=== PATIENT | female | born 1990 ===

== ENCOUNTER 2025-03-02 14:44 | Observation (INO) | payer OTHER, SELFPAY ==
[2025-03-02] VITALS (17 sets, daily range): BP systolic 104–119; BP diastolic 61–76; PULSE 64–90; RESP 9–27; TEMP 36.3–36.6; O2SAT 97–100; BMI 25.4
--- NOTE | 2025-03-02 | PATH_ITS ---
[facility] Accession Number: [id number] No. of containers..02 Tissue . 01 Material submitted: . PART A: stomach - ANTRAL PART B: esophagus - ESOPHAGUS . 01 Diagnosis: Part A: ANTRAL: Gastric mucosa with minimal chronic inflammation. No Helicobacter organisms identified on H/E stain. No intestinal metaplasia, dysplasia, or malignancy identified. . Part B: ESOPHAGUS: Proximal gastric-type glandular mucosa with mild chronic inflammation. No goblet cell metaplasia, dysplasia, or malignancy identified. [facility] 03/13/20251605 Local . 01 Electronically signed: . Javier Bonds MD, Pathologist NPI- [id number] . 01 Gross description: . . . . Received are two formalin-filled containers both labeled with the patient's name. . A. In a container labeled antral. The specimen consists of two fragments of girard, soft tissue which range in size from 0.2 x 0.2 x 0.2 cm to 0.4 x 0.2 x 0.2 cm. All fragments are totally submitted in cassette A1. . B. In a container labeled esoph. bx. The specimen consists of two fragments of girard, soft tissue which range in size from 0.2 x 0.2 x 0.2 cm to 0.3 x 0.3 x 0.2 cm. All fragments are totally submitted in cassette B1. ([id number]) /[facility] 03/13/20251605 Local . 01 Pathologist provided ICD-10: K20.90, K29.30 . 01 CPT . 134663, [id number] Specimen Comment: A courtesy copy of this report has been sent to [facility] Performed at: [address] [place] [id number] MD Javier Bonds MD Phone: [phone]
--- NOTE | 2025-03-02 15:06 | ED.SKABFB ---
HPI - Skin/Abscess/Foreign Bdy General Chief complaint: Skin/Abscess/Foreign Body Stated complaint: food stuck in esoph, couple hours Time Seen by Provider: 03/02/25 15:00 Source: patient Mode of arrival: Ambulatory Limitations: no limitations History of Present Illness HPI narrative: 34-year-old female history of prior strictures, Page fundoplication around 4th grade patient has had last esophageal dilation in 2014 she has had issues on and off over the years. States that she has been slowly worsening over the last year but was eating Ruston sprouts today when she, felt it get stuck. patient states happened at about noon today. She has not had any success getting it out. She has been spitting her saliva. She denies any pain, no shortness of breath, no swelling no difficulty swallowing otherwise. She states she has had a prior appendectomy. Patient has allergy to paper tape. Denies any tobacco, occasional alcohol, no recreational drugs. Related Data Allergies Allergy/AdvReac Type Severity Reaction Status Date / Time paper tape Allergy Mild Rash Uncoded 03/02/25 14:51 Review of Systems Review of Systems ROS Unobtainable: All systems reviewed & are unremarkable except as noted in HPI and below Patient History Social History household members: spouse Smoking Status: Never smoker Smoking Status: Never smoker Exam Narrative Exam Narrative: GEN: well nourished, well appearing Female, alert and oriented x 3, patient appears to be in mild distress. HEENT: Atraumatic, pupils are equal round reactive to light, extraocular movements are intact, nares are clear, TMs are clear with no fluid, there is no conjunctival pallor. Throat is clear without any exudates, erythema, tonsillar enlargement or uvular deviation, no stridor, no hoarseness. HEART: Regular rate and rhythm without murmur, clicks, rubs. LUNGS:Lungs clear to auscultation, no wheezes, rales, crackles, chest moves symmetrically ABD:bowel sounds normal, soft, non-tender, no guarding, rebound, rigidity, no masses noted, no hepatosplenomegaly MSCL: full range of motion, normal gait NEURO:CN 2-12 intact, sensation normal Initial Vital Signs Initial Vital Signs: Vital Signs Temperature 98 F 03/02/25 14:51 Pulse Rate 76 03/02/25 14:51 Respiratory Rate 17 03/02/25 14:51 Blood Pressure 119/63 03/02/25 14:51 Pulse Oximetry 97 03/02/25 14:51 Oxygen Delivery Method Room Air 03/02/25 14:51 Course Orders Ordered: Sodium Chloride (Normal Saline 0.9%) 1,000 mls @ 150 mls/hr IV CONT ATIYA Last Admin: 03/02/25 16:20 Dose: 150 mls/hr Documented By: HOMER Lactated Ringer's (Lactated Ringers) 1,000 mls @ 42 mls/hr IV CONT ATIYA Discontinued Medications Glucagon (Glucagon,Human Recombinant 1 Mg/Ml Vial) 1 mg IV NOW ONE Stop: 03/02/25 15:07 Last Admin: 03/02/25 15:27 Dose: 1 mg Documented By: BRONWYN Vital Signs Vital signs: Vital Signs - 8 hr 03/02/25 14:51 03/02/25 16:27 03/02/25 16:30 Temperature 98 F Pulse Rate 76 67 71 Respiratory Rate 17 Blood Pressure 119/63 Pulse Oximetry 97 100 100 Oxygen Delivery Method Room Air 03/02/25 16:30 03/02/25 17:00 03/02/25 17:00 Temperature Pulse Rate 68 Respiratory Rate Blood Pressure 107/68 110/70 Pulse Oximetry 100 Oxygen Delivery Method MDM - Skin/Abscess/Foreign Bdy Lab Data Labs: Point of Care Testing Test Results Negative MDM Narrative Medical decision making narrative: 34-year-old female with a history of esophageal strictures last dilation was over 10 years ago patient initially had issues in 4th grade had dilation, Page fundoplication and also a G-tube for a period of time around that age. Patient noted slowly worsening symptoms over the past year, states she was eating Ruston sprouts that seemed to have gotten stuck. She has continuously spitting her secretions but not in any other distress. Patient received glucagon along with carbonated beverage without success. Patient started on maintenance fluids. Dr. Ennis paged @ [phone], currently in the OR. Will call back. Spoke with general surgery, Dr. Ennis @ [phone] plan for OR this evening there sternal currently with the patient so maybe a little bit longer. But accepts for plan for OR tonight for esophageal food bolus. Dr. Ennis in the department to evaluate patient. Discharge Plan Departure Patient Disposition: Admitted to Surgery Clinical Impression: Food impaction of esophagus Qualifiers: Encounter type: initial encounter Qualified Code(s): T18.128A - Food in esophagus causing other injury, initial encounter Admit Date/Time: 03/02/25 17:02 Admit Provider: Ronal Ennis
[2025-03-02] MEDS: GLUCAGON,HUMAN RECOMBINANT 1 MG/ML VIAL IV (15:27)
--- NOTE | 2025-03-02 15:30 | PC.NURSE ---
Attempted to swallow warm soda with glucagon injection, was not successful in clearing impaction.
[2025-03-02] MEDS: SODIUM CHLORIDE 0.9% 1,000 ML 150 ML IV (16:20)
--- NOTE | 2025-03-02 16:53 | CM.DANOTE ---
DCP Assessment Note: Pt is a 34yo female, resident of [place], is admitted for food impaction. Pt lives in a house with her spouse, Jessica. Pt's Primary Care Provider is on [facility] and insurance is [employer]. Reviewed chart and discussed with multidisciplinary team pt's medical status and initial discharge needs. Per ED Provider, General Surgery is consulted for possible surgical intervention of impacted food. Plan: Anticipating discharge home when medically cleared, pt spouse to transport home. CM team will follow closely for coordination of discharge plans. Nloa Nicole [facility] Discharge Planning/Care Management CM Discharge Assessment Start: 03/02/25 16:51 Freq: Status: Active Protocol: Document 03/02/25 16:51 MW (Rec: 03/02/25 16:53 MW [id number]) Discharge Planning Assessment Assigned Discharge [employer] Insurance DPOA/Assigned Jessica Browning, Spouse Designee Name Contact Information [phone] Advance Directives? No Has Patient been No admitted in last 30 days? Prior Living House Arrangements Household Members spouse Type of Drives own vehicle transporation used prior to admit Independent with ADL Yes 's Is patient alert and Yes oriented? Discharge Plan Home Review Status In Process Please Provide Date 03/02/25 Initial DC Assessment Was Performed Next Review Type Continued Stay Review
--- NOTE | 2025-03-02 18:43 | PM.HP.IH.1 ---
History of Present Illness History of Present Illness Date Patient Seen: 03/02/25 Time Patient Seen: 18:43 Chief complaint: food stuck in esoph, couple hours Narrative: 34yo F admitted from ED with food impaction. Patient with esophageal stricture. Last dilation 2013. H/O remote Page. Tonight, brussel sprouts stuck. Glucagon in ED with no improvement. Plan EGD, possible dilation. [facility] Social History household members: spouse Smoking Status: Never smoker Meds Home Medications and Allergies Allergies Allergy/AdvReac Type Severity Reaction Status Date / Time paper tape Allergy Mild Rash Uncoded 03/02/25 14:51 Exam Vital Signs (past 8 hours): - 03/02/25 14:51 03/02/25 16:27 03/02/25 16:30 Temperature 98 F Pulse Rate 76 67 71 Respiratory Rate 17 Blood Pressure 119/63 Pulse Oximetry 97 100 100 Oxygen Delivery Method Room Air 03/02/25 16:30 03/02/25 17:00 03/02/25 17:00 Temperature Pulse Rate 68 Respiratory Rate Blood Pressure 107/68 110/70 Pulse Oximetry 100 Oxygen Delivery Method Oxygen Delivery Method Room Air Narrative Exam Narrative: Const General: healthy appearing, comfortable and no acute distress Orientation: alert and oriented x3 HENMT Ears: hearing grossly normal bilaterally Eyes Visual Christian: normal visual christian by confrontation Conjunctivae: conjunctivae normal Sclera: sclerae normal EOM: EOM intact bilaterally Resp Effort & Inspection: normal respiratory effort and able to speak in complete sentences Cardio Rate: regular rate GI Palpation: soft (NT) Extrem General: no pedal edema and no calf tenderness Assessment & Plan Assessment and plan (1) Food impaction of esophagus: Qualifiers: Encounter type: initial encounter Qualified Code(s): T18.128A - Food in esophagus causing other injury, initial encounter; [id number].[id number] - Food entering into or through a natural orifice, initial encounter Status: Acute Plan EGD, remove food impaction. Possible dilation. The risks, benefits and options regarding the procedure were explained to the patient in detail. Risk discussion included but not limited to: perforation, bleeding, infection. The patient was encouraged to ask questions and they were answered to their satisfaction. The patient understands and is agreeable to proceed. Time-Based Coding :: [TOTAL MINUTES] spent with patient and on the chart (including review of chart, obtaining history, exam, reviewing outside data, placing orders, documenting exam and treatment plan, and counseling patient) on [DATE]. 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
--- NOTE | 2025-03-02 21:21 | P.OP.EGD_ITS ---
Operative Date/Time/Diagnoses Date of procedure: 03/02/25 Time of procedure: 22:30 Pre-op diagnosis: Food impaction, esophageal stricture Post-op diagnosis: same Procedure & Clinicians Study performed: EGD with dilation Same procedure(s) as scheduled: Yes Indications: 34yo F with food impaction, h/o esophageal stricture Surgeon: Ronal Ennis Anesthesia Type: MAC +/- Procedure Notes SCOAP/Timeout: Performed Procedure in detail: EGD Informed consent was obtained. The procedure, its risks, benefits, and alternatives were discussed. Patient understood and agreed to proceed. The patient was placed in the left lateral decubitus position with head elevated. Sedation given per anesthesia. The video endoscope was inserted into the oropharynx and guided under direct vision into the esophagus, stomach, and duodenum which were carefully examined. The scope was retroflexed to examine the hiatus and gastroesophageal junction. Antral biopsies were obtained for He licobacter pylori. The patient tolerated the procedure very well. There were no apparent complications. Significant EGD findings: Z-line noted at: 35cm No residual food impaction, but lots of mucous Narrowing at fundoplication, scope passes easily Mild duodenitis, mild antritis, antrum biopsied No ulcer in esophagus, stomach or duodenum Evidence of prior G-tube in distal stomach Page wrap intact on retroflex Esophagitis proximal to wrap, LA Grade A, biopsied Distal esophagus dilated to 36 Fr, 12mm sequentially from 3, 5, 8 JOHN; 10mm, 11mm, 12mm; 30Fr, 33Fr 36Fr Was still able to move balloon at 36Fr, but did not want to aggressively dilate to undo Page wrap and cause reflux Estimated Blood Loss: 5 Complications: none Impression: Food impaction (resolved) Narrowing/edema at Page fundoplication wrap, dilated to 36Fr (12mm) Post-procedure Recommendations: Will call with biopsy results Plan for aftercare: PACU then floor Follow up: as needed Disposition: PACU
== END 2025-03-02 23:22 | disposition home or self-care (01) ==
LOC: ED 17:00 → AC 17:03
PROVIDERS: Admitting Provider Surgery; Emergency Provider Emergency Medicine; Referring Provider Emergency Medicine; Visit Provider Surgery
PROC: 0DJ08ZZ Inspection of Upper Intestinal Tract, Via Natural or Artificial Opening Endoscopic (ICD-10-PCS; CPT 43249; principal; 2025-03-02 18:15)
DX: T18.128A Food in esophagus causing other injury, initial encounter (principal); K22.2 Esophageal obstruction; K20.90 Esophagitis, unspecified without bleeding; K29.80 Duodenitis without bleeding; K29.50 Unspecified chronic gastritis without bleeding; W44.F3XA Food entering into or through a natural orifice, initial encounter; Z98.890 Other specified postprocedural states
CPT/HCPCS: 43249; 43239; 36415; 81025; 82962; 96374; 99284; G0378; J0330; J1100; J1610; J2405; J2704; J3010; J7030